=== PATIENT | female | born 1985 | race Caucasian/White ===

== ENCOUNTER 2021-06-18 10:50 | Emergency (ER) | payer OTHER ==
[2021-06-18] MEDS ORDERED: Bacitracin Oint 1 GM U/D Packet TOP ONE (11:05)
--- NOTE | 2021-06-18 11:33 | EDM.PDOC ---
ED HPI GENERAL MEDICAL PROBLEM - General Chief Complaint: Skin Complaint Stated Complaint: DOG BITE ON FACE Time Seen by Provider: 06/18/21 11:10 Source of Information: Reports: Patient, Old Records, RN History Limitations: Reports: No Limitations - History of Present Illness INITIAL COMMENTS - FREE TEXT/NARRATIVE: 35 yo female here after her puppy lunged at her and its teeth cut her upper lip in 2 places. Both the dog and Mona are UTD on their vaccinations. Injury was very recent. Onset: Today, Sudden Onset Date: 06/18/21 Duration: Minutes:, Constant Location: Reports: Face Quality: Reports: Burning Severity: Mild Improves with: Reports: None Worsens with: Reports: None Context: Reports: Trauma Associated Symptoms: Reports: No Other Symptoms Treatments [employer]: Reports: Other (see below) (none) Lip Pain Score (Numeric/FACES): 3 - Related Data Allergies Allergy/AdvReac Type Severity Reaction Status Date / Time amoxicillin Allergy Rash Verified 06/18/21 11:09 hepatitis B virus vaccine Allergy Anaphylactic Verified 06/18/21 11:09 Shock levofloxacin [From Levaquin] Allergy Rash Verified 06/18/21 11:09 Home Meds: Home Meds Clindamycin HCl 150 mg PO TID #10 capsule 06/18/21 [Rx] Social & Family History - Tobacco Use Tobacco Use Status *Q: Never Tobacco User - Recreational Drug Use Recreational Drug Use: No ED ROS GENERAL - Review of Systems Review Of Systems: See Below Constitutional: Reports: No Symptoms HEENT: Reports: No Symptoms Skin: Reports: Wound (upper lip through marlee border on the R and upper the marlee border on the left. ) Neurological: Reports: No Symptoms ED EXAM, SKIN/RASH Exam: See Below Exam Limited By: No Limitations General Appearance: Alert, WD/WN, No Apparent Distress Neurological: Alert, Oriented, CN II-XII Intact, Normal Cognition, No Motor/S ensory Deficits Psychiatric: Normal Affect, Normal Mood Skin: Warm, Dry, Normal Color, No Rash, Wound/Incision (lacerations x 2 of the upper lip, the left wound is about 1.8 cm and is deeper traversing the marlee border, the L wound is about 1.5 cm and is more superficial. ). No: Intact Location, Skin: Face Characteristics: Linear Associated features: Tenderness. No: Lymphangitis ED SKIN PROCEDURES - Laceration/Wound Repair Right Upper Mouth Appearance: Subcutaneous, Linear, Clean Anesthetic Type: Local Local Anesthesia - Lidocaine (Xylocaine): 1% with EPI Local Anesthetic Volume: 3cc Skin Prep: Saline Saline Irrigation (cc's): 20 Exploration/Debridement/Repair: Wound Explored Closed with: Sutures Lac/Wound length In cm: 1.8 Suture Size: 6-0 # of Sutures: 7 Suture Type: Prolene Drain Placement: No Sterile Dressing Applied: None Tetanus Status Addressed: Yes Complications: No Left Face Appearance: Superficial, Linear Anesthetic Type: Local Local Anesthesia - Lidocaine (Xylocaine): 1% with EPI Local Anesthetic Volume: 2cc Skin Prep: Saline Saline Irrigation (cc's): 15 Closed with: Sutures Lac/Wound length In cm: 1.5 Suture Size: 6-0 # of Sutures: 4 Suture Type: Prolene Drain Placement: No Sterile Dressing Applied: None Tetanus Status Addressed: Yes Complications: No Course - Vital Signs Last Recorded V/S: Last Vital Signs Temp 37.0 C 06/18/21 11:05 Pulse 110 H 06/18/21 11:05 Resp 16 06/18/21 11:05 BP 152/79 H 06/18/21 11:05 Pulse Ox 100 06/18/21 11:05 - Orders/Labs/Meds Meds: Medications Discontinued Medications Generic Name Dose Route Start Last Admin Trade Name Freq PRN Reason Stop Dose Admin Bacitracin 1 dose 06/18/21 11:05 Bacitracin Oint 1 Gm U/D Packet TOP 06/18/21 11:06 ONETIME ONE Departure - Departure Time of Disposition: 11:40 Disposition: Home, Self-Care 01 Condition: Good Clinical Impression: Dog bite of face Qualifiers: Encounter type: initial encounter Qualified Code(s): S01.85XA - Open bite of other part of head, initial encounter; W54.0XXA - Bitten by dog, initial encoun ter - Discharge Information *PRESCRIPTION DRUG MONITORING PROGRAM REVIEWED*: Not Applicable *COPY OF PRESCRIPTION DRUG MONITORING REPORT IN PATIENT MODE: Not Applicable Instructions: Animal Bite, Adult, [id number] Referrals: PCP,None [Primary Care Provider] - Forms: ED Department Discharge Additional Instructions: Clean wound twice daily with 1/2 water and 1/2 peroxide. Dry. Apply antibiotic ointment. Use acetaminophen as needed for pain relief. Take clindamycin for wound prophylaxis as directed until gone. Return for signs of infection and/or to have your stitches removed just before you are about to leave town to return home. Sepsis Event Note (ED) - Evaluation Sepsis Screening Result: No Definite Risk - Focused Exam Vital Signs: Vital Signs Temp Pulse Resp BP Pulse Ox 06/18/21 11:05 37.0 C 110 H 16 152/79 H 100
== END 2021-06-18 11:51 | disposition home or self-care (01) ==
LOC: JP.ED 10:50
DX: S01.85XA Open bite of other part of head, initial encounter (principal); Z88.0 Allergy status to penicillin; Z88.8 Allergy status to other drugs, medicaments and biological substances; W54.0XXA Bitten by dog, initial encounter
CPT/HCPCS: 12013; 99283-25